=== PATIENT | male | born 1965 | race Caucasian/White ===

== ENCOUNTER 2019-02-19 09:55 | Emergency (ER) | payer SELFPAY ==
[2019-02-19] MEDS ORDERED: HYDROcodone/Acetaminophen 10/325 mg Tablet ONE (10:26)
[2019-02-19] MEDS ORDERED: Acetaminophen 325 MG TAB ONE (10:26)
== END 2019-02-19 10:33 | disposition home or self-care (01) ==
LOC: MADERS 09:55
DX: K04.7 Periapical abscess without sinus (principal); I10 Essential (primary) hypertension; F17.210 Nicotine dependence, cigarettes, uncomplicated; Z79.899 Other long term (current) drug therapy
CPT/HCPCS: 99283